=== PATIENT | male | born 1945 | race Hispanic/Latino ===

== ENCOUNTER 2019-07-01 10:11 | Emergency (ER) | payer MEDICARE, OTHER ==
--- NOTE | 2019-07-01 10:38 | Cat Scan Report ---
CT HEAD WITHOUT CONTRAST INDICATION / CLINICAL INFORMATION: Stroke symptoms. TECHNIQUE: All CT scans at this location are performed using CT dose reduction for ALARA by means of automated e xposure control. COMPARISON: None available. FINDINGS: HEMORRHAGE: None. EXTRA-AXIAL SPACES: Normal in size and morphology for the patient's age. VENTRICULAR SYSTEM: Normal in size and morphology for the patient's age. CEREBRAL PARENCHYMA: Moderate periventricular deep white matter hypoattenuation characteristic for mi croangiopathy. No significant abnormality. No acute territorial infarct. MIDLINE SHIFT OR HERNIATION: None. CEREBELLUM / BRAINSTEM: No significant abnormality. ORBITS: Normal as visualized. SOFT TISSUES of HEAD: No significant abnormality. CALVARIUM: No significant abnormality. PARANASAL SINUSES / MASTOID AIR CELLS: Normal as visualized. ADDITIONAL FINDINGS: Moderate vascular calcifications both cavernous carotid and vertebral arteries. IMPRESSION: 1. No intracranial bleed or large territorial infarction. 2. Moderate microangiopathy. Code stroke findings were discussed with Dr. Jacobs at 9:33 AM central time 07/01/2019 with 3 Signer Name: Stanley Quiroz MD Signed: 07/01/2019 10:34 AM Workstation Name: [id number]
[2019-07-01 10:43] LABS: Basophils # (Auto) 0.1 K/mm3 (0.0-0.1); Basophils % (Auto) 1.2 % (0.0-1.8); Eosinophils # (Auto) 0.1 K/mm3 (0.0-0.4); Eosinophils % (Auto) 2.2 % (0.0-4.3); Hematocrit 43.9 % (35.5-45.6); Hemoglobin 14.6 gm/dl (11.8-15.2); Lymphocytes # (Auto) 1.6 K/mm3 (1.2-5.4); Mean Corpuscular HGB Conc 33 % (32-34); Mean Corpuscular Volume 88 fl (84-94); Monocytes # (Auto) 0.7 K/mm3 (0.0-0.8); Monocytes % (Auto) 11.8 % (0.0-7.3); Platelet Count 216 K/mm3 (140-440); Red Blood Count 4.99 M/mm3 (3.65-5.03); Red Cell Distribution Width 16.6 % (13.2-15.2)
[2019-07-01 10:55] LABS: INR 1.53 (0.87-1.13)
[2019-07-01 10:56] LABS: Partial Thromboplastin Time 32.2 Sec. (24.2-36.6)
[2019-07-01 10:57] LABS: Thrombin Time 17.9 Sec. (15.1-19.6)
[2019-07-01] MEDS ORDERED: SODIUM CHLORIDE 0.9% 1000 ML 1,000 ML ONE (10:58)
[2019-07-01] MEDS ORDERED: SODIUM CHLORIDE 0.9% 1000 ML 1,000 ML IV ONE ×3 (10:58→12:55)
[2019-07-01] MEDS ORDERED: ASPIRIN 300 MG RECT SUPP PR ONE (11:00)
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
[2019-07-01] MEDS ORDERED: ASPIRIN 81 MG TAB CHEW ONE (11:41)
[2019-07-01] MEDS ORDERED: ASPIRIN 81 MG TAB CHEW PO ONE (11:42)
--- NOTE | 2019-07-01 11:43 | Cat Scan Report ---
CT angio head INDICATION / CLINICAL INFORMATION: 73 years Male; Stroke Alert. Slurred speech TECHNIQUE: Thin cut axial images obtained through the head during IV bolus contrast administration. S agittal, coronal, and 3 plane MIP reconstructions performed by the technologist. NASCET type criteria used evaluate stenoses. Automated exposure control utilized for radiation reduction purposes. COMPARISON: CT head - 07/01/2019 FINDINGS: INTERNAL CAROTID ARTERIES: No significant narrowing appreciated. Mild atherosclerotic disease noted. VERTEBROBASILAR SYSTEM: A portion of the right vertebral artery appears to be occluded, proximal to t he origin of the right PICA. Atherosclerotic disease is noted. There is also mild narrowing seen in p ortions of the basilar artery. DISTAL BRANCHES: Distal branches of the anterior and posterior cerebral arteries are fairly symmetric in appearance and number. Note, the A1 segment on the right is hypoplastic. Hypoplastic P1 segment n oted on the right as well. There appears to be thrombus and/or occlusion in the distal M1 segment of the left middle cerebral ar se. Left MCA vessels are less well visualized when compared with the right, although fairly adequat e collateral flow is suggested, except in the posterior, inferior frontal lobe region. ANEURYSM: There is a curvilinear 8 mm aneurysm projecting superiorly and medially from the junction o f the A1-2 region on the left. The neck of the aneurysm is somewhat wide. ADDITIONAL FINDINGS: Remainder of the surrounding soft tissues are grossly normal. IMPRESSION: 1. Near complete occlusion of the distal M1/MCA trifurcation region on the left as described above. 2. 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 3. Absence of flow seen in the right vertebral artery in the region of foramen magnum. Signer Name: Sang Palomares MD, III Signed: 07/01/2019 11:39 AM Workstation Name: [id number]
--- NOTE | 2019-07-01 11:54 | Cat Scan Report ---
CT angio neck INDICATION / CLINICAL INFORMATION: 73 years Male; Stroke Alert. TECHNIQUE: Thin cut axial images obtained through the head during IV bolus contrast administration. S agittal, coronal, and 3 plane MIP reconstructions performed by the technologist. NASCET type criteria used evaluate stenoses. All CT scans at this location are performed using CT dose reduction for ALAR A by means of automated exposure control. COMPARISON: None available. FINDINGS: ARCH: Normal aortic arch branching suggested. Significant narrowing seen in the proximal stomach left subclavian artery with near complete occlusio n suggested, just proximal to the origin of the left vertebral artery. Focal areas of bandlike narrow ing are seen more distally in the left subclavian artery-fibromuscular dysplasia might be considerati on. Atherosclerotic disease is seen throughout. CAROTID ARTERIES: The visualized common and internal carotid arteries are patent. Atherosclerotic dis ease is seen throughout the course of these vessels with most prevalent findings in the proximal inte rnal carotid bulb regions bilaterally-right slightly greater than left. However, no areas of hemodyna mically significant narrowing are appreciated. VERTEBRAL ARTERIES: Codominant vertebral system seen. There are areas of mild narrowing in the right vertebral artery along its course with complete occlusion suggested where the vessel passes through f oramen of Bravo. There is also atherosclerotic disease in the distal left vertebral artery in this s dk region with mild narrowing noted. The left vertebral artery is otherwise widely patent throughout . ADDITIONAL FINDINGS: Remainder of the surrounding soft tissues are grossly normal. IMPRESSION: 1. Significant narrowing seen in the proximal left subclavian artery. Fibromuscular dysplasia might b e a consideration. 2. Occlusion seen distally in the right vertebral artery. 3. Scattered areas of atherosclerotic disease identified as described above. Signer Name: Sang Palomares MD, III Signed: 07/01/2019 11:50 AM Workstation Name: [id number]
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
--- NOTE | 2019-07-01 12:07 | XRay Report ---
CHEST 1 VIEW INDICATION / CLINICAL INFORMATION: STROKE. COMPARISON: None available. FINDINGS: SUPPORT DEVICES: None. HEART / MEDIASTINUM: No significant abnormality. Sternotomy. LUNGS / PLEURA: No significant pulmonary or pleural abnormality. No pneumothorax. ADDITIONAL FINDINGS: No significant additional findings. IMPRESSION: 1. No acute pulmonary disease. Signer Name: Caitlyn Jose MD Signed: 07/01/2019 12:03 PM Workstation Name: [id number]
[2019-07-01 12:37] LABS: Creatine Kinase MB 2.2 ng/mL (0.0-4.0)
[2019-07-01 12:38] LABS: BUN/Creatinine Ratio 17; Blood Urea Nitrogen 25 mg/dL (9-20); Hemolysis Index 7
[2019-07-01 13:40] VITALS: BP 87/60
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
== END 2019-07-01 12:59 | disposition other institution (70) ==
LOC: ED 10:11
DX: I63.89 Other cerebral infarction (principal); E11.9 Type 2 diabetes mellitus without complications
CPT/HCPCS: 36415; 70450; 70496; 70498; 71045; 80048; 82550; 82553; 82962; 84484; 85025; 85610; 85670; 85730; 93005; 93010; 96360; 96361; 99285; J7030; Q9967; 80320; G0480